=== PATIENT | female | born 1985 | race Caucasian/White ===

== ENCOUNTER 2018-11-22 06:13 | Day surgery (SDC) | payer OTHER, SELFPAY ==
[2018-11-22] VITALS (9 sets, daily range): BP systolic 102–132; BP diastolic 65–90; PULSE 83–94; RESP 10–16; TEMP 36.2–37.2; O2SAT 92–98; BMI 41.1
--- NOTE | 2018-11-22 | DI.RAD.S_ITS ---
PROCEDURE: XR ANKLE RT MIN 3V INDICATIONS: RIGHT FX REPAIR TECHNIQUE: 4 views of the ankle were acquired. COMPARISON: None. FINDINGS: 4 spot fluoroscopic intraoperative images demonstrating plate and screw fixation of the lateral malleolus and distal fibula. There is screw fixation of the medial malleolus and postsurgical change related to tight rope procedure. There is expected postoperative alignment. The hardware appears intact. Dictated by: Derek Pollock M.D. on 11/22/2018 at 13:30 Approved by: Derek Pollock M.D. on 11/22/2018 at 13:31
[2018-11-22] MEDS: LACTATED RINGERS 1,000 ML 42 ML IV (06:55)
--- NOTE | 2018-11-22 07:03 | PM.PREOP ---
Pre-operative Note Interval Note History & Physical reviewed/Exam performed by Physician: Yes Changes to H&P: No
--- NOTE | 2018-11-22 07:28 | P.OP_ITS ---
Operative Date/Time/Diagnoses Date of procedure: 11/22/18 Time of procedure: 08:15 Pre-op diagnosis: Closed right trimalleolar ankle fracture S82.851 Disruption syndesmosis Post-op diagnosis: same Procedure & Clinicians Procedure: Open reduction internal fixation right trimalleolar [place] cpt 39911 Open reduction internal fixation right syndesmosis cpt 75389 Same procedure as scheduled: Yes Indications: Operative indications: The patient has an unstable and displaced right trimalleolar ankle fracture and was indicated for surgical reduction and stabilization. The patient was counseled regarding the rationale for this and the risks of surgery. The risks include infection, bleeding, damage to nerves and blood vessels, or tendons, wound dehiscence, malunion, nonunion, persistence of pain, DVT, PE, inability to return to her desired level of function, hardware breakage or prominence, generalized dissatisfaction with the procedure, need for additional procedures, cardiopulmonary complications and . The patient expressed understanding of all the risks and elected to proceed. Consent was signed in the office. Patient understands that recovery is variable and may require up to a 1 year. The patient also understands that it is critical to strictly elevate the operative leg for the 1st 2 weeks after surgery to control swelling and pain. The patient was counseled that no weight will be allowed on the surgical leg for approximately 6 weeks (except touchdown for balance) or until the patient is instructed that it is safe to initiate weight-bearing. The patient expressed full understanding of all these issues would like to proceed with surgery. The patient was additionally counseled on cessation of all igor franny products to promote bone and wound healing. DVT prophylaxis was discussed and will be completed with aspirin 325 mg b.i.d. starting postoperative day 1. Surgeon: Alejandrina Smith Click Yes if Unassisted: Yes Anesthesia Type: General and Peripheral nerve block Operative Notes Findings: Unstable fibula diaphyseal fracture with posterior butterfly fragment. this was stabilized with an 8 hole 1/3 tubular plate. Displaced medial malleolus fracture stabilized with 2x4.0 cannulated screws. Unstable syndesmosis reduced and stabilized with a Arthrex suture button device Closure Type: primary Specimen(s): none sent Applied: implant(s) (Arthrex 8 hole 1/3 tubular plate. Two x 4.0 cannulated screws. Arthrex stainless steel tightrope) Estimated Blood Loss (mL): 30 Blood products transfused: none Tourniquet time (min): 78 Procedure in detail: In the preoperative holding area, the appropriate limb and sites were marked, consent was again reviewed with the patient and all questions answered. The patient was brought to the operating room, placed on the operating table and given anesthetic. Following successful levels of anesthesia, the patient was appropriately padded, position secured to the table. An SCD was placed on the contralateral leg. All bony prominences were well padded. A well- padded thigh tourniquet was placed. The surgical leg was then prepped and draped in the usual sterile fashion. A formal time-out procedure was completed confirming the patient, site and side of surgery and administration of appropriate preoperative antibiotics. All were in agreement. The patient had a preoperative regional block placed by the anesthesia team for postoperative pain control this was a popliteal block in additionally the patient had local anesthesia in the operating room for saphenous block An Esmarch bandage was utilized to exsanguinate the limb and the tourniquet was raised on the thigh to 250 mmHg. Lateral incision was made over the fibula. Dissection was carried through the skin and subcutaneous tissue to the level of the fibula. The fracture was exposed and cleaned of debris. Fracture was reduced, restoring length rotation and anatomic alignment. The fracture was a very short oblique fracture. This was not amenable to a separate lag screw. The fracture was reduced with a clamp and then stabilized with 8 hole 1/3 tubular plate. Nonlocking cortical screws were used proximal and distal to the fracture site and the distal screw hole left open for potential syndesmotic fixation. Medial malleolus fixation: Attention was then turned to the medial side of the joint. A medial extensile type incision was taken to the medial malleolus. This was placed just posterior to my typical incision due to some resolving blistering the patient had in the standard position. The periosteum was reflected at the fracture site and this was cleaned the joint was inspected and irrigated no obvious cartilage lesions were noted. The fracture was reduced with a pointed reduction clamp. Two parallel K-wires were then placed and alignment checked on x-ray to confirm adequate position. The wires were then sequentially overdrilled and 2x 4.0mm cannulated screws were placed (40 and 45 mm). The reduction was stable. Following stabilization of the medial lateral malleoli the syndesmosis was stressed. Syndesmosis stabilization: Attention was then turned to the syndesmosis. The syndesmosis was stressed under fluoroscopy with external rotation and fibular manipulation using the bone clamp. The syndesmosis opened, and had supraphysiologic motion in the sagittal plane. Therefore the syndesmosis was formally opened and reduced, pinned and then stabilized with 1 arthrex tight rope suture button. Stability was confirmed under fluoro under stress. The wounds were irrigated. We were quite satisfied with result clinically and radiographically. The known posterior malleolus fracture was in stable position at the end of the procedure and therefore was treated closed. The tourniquet was released, and hemostasis achieved. The deep tissue was closed with 2 O Vicryl. Subcutaneous tissue was closed with 4 0 Monocryl in the skin with 3 O nylon. A sterile bulky dressing and knee splint were applied. All counts were correct. The patient was then awoken and transported to recovery room in good condition. There no known immediate complications from this procedure. Complications: none Condition: stable Disposition: PACU Plan for aftercare: Patient will be nonweightbearing on the surgical leg. They will start taking aspirin 325 mg b.i.d. for DVT prophylaxis on postop day 1, for 6 weeks. The patient will follow up in 2 week for wound check and change to a boot and early range of motion and suture removal, will continue to be nonweightbearing. Follow-up in 4 weeks for repeat x-ray. Start weight-bearing progressively between 6 and 12 weeks.
[2018-11-22] MEDS: MIDAZOLAM 2 MG/2 ML VIAL IV ×2 (07:30→07:43)
[2018-11-22] MEDS: fentaNYL 100 MCG/2 ML INJ 50 MCG IV ×5 (07:30→11:50)
[2018-11-22] MEDS: CEFAZOLIN 2 GM/100 ML FROZ.PIGGY IV (07:50)
--- NOTE | 2018-11-22 07:54 | SUR.PREOP ---
Block start time [0730] . Monitoring initiated and maintained throughout procedure. Oxygen and medications given per anesthesiologist instructions. Patient remained stable throughout procedure, no adverse reactions noted. Block end time [0752].
--- NOTE | 2018-11-22 08:21 | SUR.OPER ---
Supine on padded OR bed, head on pillow, arms secured on padded arm boards at <90 degrees abduction, legs uncrossed, safety belt at waist, tape over blanket over lower non-operable leg.
[2018-11-22] MEDS: BUPIVACAINE 0.25% W/ EPI 30 ML VIAL INJ (08:37)
[2018-11-22] MEDS: OXYCODONE/ACETAMINOPHEN 5/325 TABLET 1 TAB PO ×2 (10:45→11:36)
[2018-11-22] MEDS: HYDROMORPHONE 2 MG INJ 0.5 MG IV (11:50)
--- NOTE | 2018-11-22 11:52 | SUR.PHASEII ---
See emar -- patient in obvious pain, tearful, rigid, Dad at bedside. Put on continuous monitor, medications given. Has ice, elevation, Dad's questions answered.
--- NOTE | 2018-11-22 13:02 | SUR.PHASEII ---
1250 VSS, pain 3/10, explained that we will not be able to make her pain free and that a 3/10 indicates good pain control. VSS, maintaining adequate sat on room air. All questions answered, then Dr. Smith spoke w/pt and dad - answered more questions. 1305 BRASS MOLDER assisting patient with dressing.
--- NOTE | 2018-11-22 13:35 | SUR.PHASEII ---
1320 Assisted to bathroom by [employer], voided, Stable, discharged to home.
== END 2018-11-22 13:20 | disposition home or self-care (01) ==
PROVIDERS: Visit Provider Orthopaedic Surgery Foot and Ankle Surgery
PROC: 0SSF04Z Reposition Right Ankle Joint with Internal Fixation Device, Open Approach (ICD-10-PCS; CPT 27822; principal; 2018-11-22 07:45)
DX: S82.851A Displaced trimalleolar fracture of right lower leg, initial encounter for closed fracture (principal); W10.8XXA Fall (on) (from) other stairs and steps, initial encounter; G89.18 Other acute postprocedural pain
CPT/HCPCS: 27822; 27829; 64450; 73610; 76000; J0690; J1100; J1170; J2250; J2405; J2704; J3010

== ENCOUNTER 2019-01-28 15:36 | Day surgery (SDC) | payer OTHER, SELFPAY ==
[2019-01-28] VITALS (10 sets, daily range): BP systolic 99–131; BP diastolic 60–83; PULSE 55–95; RESP 12–21; TEMP 36.1–36.6; O2SAT 96–100; BMI 40.4
--- NOTE | 2019-01-28 | PATH_ITS ---
[facility] Accession Number: [id number] . 01 Material submitted: . ankle - TISSUE RIGHT ANKLE . 01 Diagnosis: Tissue, Right Ankle, Biopsy: Skin with chronic-active ulcer, associated reactive and reparative changes including granulation tissue, and focal multinucleated giant cell reaction. Negative for atypia and malignancy. MRV 02/03/2019 1556 Local . 01 Comment: As part of ongoing quality review trainer, this case has also been reviewed by Dr. Shruthi Kendall, who concurs with the diagnosis. . 01 Electronically signed: . Morgan Napoles MD, Pathologist NPI- [id number] . 01 Gross description: . TISSUE RIGHT ANKLE: Received in formalin are 2 fragments of gonzales soft tissue measuring 1.2 x 0.6 x 0.4 cm in aggregate. Tissue is inked,. Specimen is sectioned and submitted in its entirety in 1 cassette. /[facility] 01/31/2019 194 Local . 01 Pathologist provided ICD-10: S82.851A . 01 CPT . 240240 Performed at: [address] [facility] [address], [place], [place] [id number] MD Catalino Holder MD Phone: [phone]
--- NOTE | 2019-01-28 16:52 | PM.PREOP ---
Pre-operative Note Interval Note History & Physical reviewed/Exam performed by Physician: Yes Changes to H&P: No
[2019-01-28] MEDS: LACTATED RINGERS 1,000 ML 42 ML IV (17:00)
--- NOTE | 2019-01-28 17:22 | P.OP_ITS ---
Operative Date/Time/Diagnoses Date of procedure: 01/28/19 Time of procedure: 20:00 Pre-op diagnosis: Reaction to deep implant, hardware complication right ankle Suture abscess right ankle with infection Post-op diagnosis: same Procedure & Clinicians Procedure: Removal of hardware right ankle cpt code 51395 lateral Removal of hardware right ankle medial CPT code 63942 modifier 59 Irrigation debridement skin subcutaneous tissue 49966 Procedures performed with modifier 78 Same procedure as scheduled: Yes Indications: Patient is a 33-year-old female approximately 8 weeks out from open reduction internal fixation right trimalleolar ankle fracture. Patient doing well until approximately 6 weeks out from fracture developed an acute swelling at the distal aspect of her lateral incision directly over the area of her syndesmotic suture button. This appeared to be a suture abscess was debrided in the office varies scant amount of purulence was gained antibiotics were started and the patient had wound care. This wound has not resolved and has formed more of a granulomatous base and is thought to be adverse reaction to the patient's suture button therefore the patient has been indicated for removal and stress examination of the syndesmosis injured operatively. If found unstable patient will have placement of a screw at a more proximal location. The risks and benefits of the procedure have been discussed with the patient even opportunity to ask questions. The risks of surgery include but are not limited to infection need for additional procedures, malunion, nonunion, persistence of pain, damage to nerves and blood vessels, posttraumatic arthritis, amputation, DVT, PE, cardiopulmonary complications and . The patient expressed a thorough understanding of the risks and benefits of surgery and has elected to proceed. Consent was signed in the office today. Surgeon: Alejandrina Smith Click Yes if Unassisted: Yes Anesthesia Type: General Operative Notes Findings: Open wound lateral ankle measuring 1 x 0.75 cm at the distal aspect of the lateral incision just proximal to the lateral malleolus at the level of the most distal plate hole and suture button device hypertrophic tissue with a very small central white drainage. Minimal surrounding erythema- granulomatous type tissue tract directly down to the suture button device. No abscess no tunneling or proximal or distal extension. Closure Type: primary Specimen(s): other (Tissue and suture button device for culture Gram stain and path) Estimated Blood Loss (mL): 5 Blood products transfused: none Tourniquet time (min): 22 Procedure in detail: Patient was seen in the preoperative area site of surgery was marked informed consent confirmed. The patient was then brought back to the operating by the anesthesia team placed supine on the operative table. General anesthesia was administered. All bony prominences were padded. A well-padded thigh tourniquet was placed on the right lower extremity. An SCD was on the contralateral extremity. The right lower extremity was prepped and draped in the standard sterile fashion. A formal time-out procedure was performed confirming the patient's side and site of surgery preoperative antibiotics were held for intraoperative cultures and then administered after cultures were taken. Attention was turned the right lower extremity. [place] exsanguination was used and the tourniquet was elevated to 250 mm of mercury. A 1 x 0.75 cm wound was visualized the lateral aspect of the ankle at the distal aspect of the lateral incision. This was ellipsed out along with the skin and deep tissue down to the suture button device. The suture button was cut and removed laterally. The corresponding area of the medial incision was also opened this was scarred down and for additional localization a wire was placed through the tunnel from lateral and this was advanced medially to locate the area for the incision medially this was opened and the medial aspect of the button was located and the remainder of the suture removed. Tissue and the suture button were sent for culture and path at this point tourniquet was released intraop antibiotics were given and the wound was irrigated with 3 L of sterile saline using a cysto tubing. The ankle was stressed under the mini C-arm in external rotation there was no evidence of syndesmotic instability therefore no additional syndesmotic fixation was placed. A curette were used in the bone tunnel and wound for the soft tissue throughout the debridement. This was debrided back to good bleeding normal appearing tissue. Then hemostasis was achieved and the wound was closed with 2 O PDS and 2 O and 3 O nylon suture all wounds primarily closed. Dressing was placed with Xeroform gauze Kerlix and an Ld wrap. Patient was awoken from anesthesia and taken to recovery room in good condition. All counts were correct. There were no known immediate complications from this procedure. Complications: none Post-operative Condition: stable Disposition: PACU Plan for aftercare: Weight bear as tolerated with assistive devices in boot. Will continue to take aspirin for DVT prophylaxis until full weight-bearing may take 325 once daily. Will continue on Bactrim pending additional cultures. Follow up in clinic in 2 weeks for wound check. Sooner if concerns.
[2019-01-28] MEDS: CEFAZOLIN 2 GM/100 ML FROZ.PIGGY IV (20:10)
[2019-01-28] MEDS: BUPIVACAINE 0.25% W/ EPI 30 ML VIAL INJ (20:30)
[2019-01-28] MEDS: fentaNYL 100 MCG/2 ML INJ 50 MCG IV ×2 (21:05→21:10)
[2019-01-28] MEDS: ONDANSETRON 4 MG/2 ML INJ IV (21:14)
[2019-01-28] MEDS: METOCLOPRAMIDE 10 MG/2 ML INJ IV (21:26)
--- NOTE | 2019-01-28 21:26 | SUR.OPER ---
Supine on padded OR bed, head on pillow, arms secured on padded arm boards at <90 degrees abduction, legs uncrossed, safety belt at thigh, tape over blanket over lower legs.
[2019-01-28] MEDS: HYDROCODONE/ACET 5/325 TABLET 1 TAB PO (21:50)
== END 2019-01-28 22:35 | disposition home or self-care (01) ==
PROVIDERS: Visit Provider Orthopaedic Surgery Foot and Ankle Surgery
PROC: (CPT 20680; principal; 2019-01-28 16:45)
DX: T84.7XXA Infection and inflammatory reaction due to other internal orthopedic prosthetic devices, implants and grafts, initial encounter (principal); T81.49XA Infection following a procedure, other surgical site, initial encounter
CPT/HCPCS: 20680 ×2; 87070; 87075; 87077; 87102; 87147; 87186; 87205; J0690; J1100; J2405; J2704; J2765; J3010